=== PATIENT | female | born 1990 | race Two or more races ===

== ENCOUNTER 2022-04-10 14:05 | Emergency (ER) | payer OTHER ==
[2022-04-10 14:38] VITALS: TEMP 98.6; BMI 23.2
[2022-04-10] MEDS ORDERED: SODIUM CHLORIDE 0.9% 500 ML INFUS.BAG IV ONE (16:10)
[2022-04-10 17:04] LABS: BASO % 0.3 % (0-2.0); EOS % 0.5 % (0-4.5); HEMATOCRIT 36.9 % (32.4-45.2); HEMOGLOBIN 12.2 GM/dL (10.7-15.3); LYMPH % 12.5 % (8-40); MCH 28.1 pg (25.7-33.7); MCHC 33.2 g/dl (32.0-36.0); MEAN CELL VOLUME 84.5 fl (80-96); MONO % 4.8 % (3.8-10.2); NEUT % 81.9 % (42.8-82.8); PLATELET COUNT 413 10^3/uL (134-434); RBC 4.37 M/mm3 (3.60-5.2); RDW 16.8 % (11.6-15.6)
[2022-04-10 17:19] LABS: CALCIUM 9.5 mg/dL (8.5-10.1)
[2022-04-10 17:20] LABS: ALBUMIN 3.1 g/dl (3.4-5.0); BLOOD UREA NITROGEN 13.7 mg/dL (7-18); MAGNESIUM 2.1 mg/dL (1.8-2.4)
[2022-04-10 17:23] LABS: CREATININE 0.6 mg/dL (0.55-1.3)
[2022-04-10 17:25] LABS: BILIRUBIN,TOTAL 0.5 mg/dL (0.2-1); TOT PROT 7.4 g/dl (6.4-8.2)
[2022-04-10 20:52] VITALS: BP 110/66; PULSE 70
== END 2022-04-10 20:54 | disposition home or self-care (01) ==
LOC: JER 14:05
DX: R00.0 Tachycardia, unspecified (principal)
CPT/HCPCS: 36415; 80053; 83735; 84443; 84484; 85025; 93005; 93010; 99284-25

== ENCOUNTER 2023-01-20 08:19 | Emergency (ER) | payer OTHER ==
[2023-01-20 08:34] VITALS: RESP 18; TEMP 98.4; BMI 19.3
[2023-01-20] MEDS ORDERED: SODIUM CHLORIDE 0.9% 500 ML INFUS.BAG IV ONE (08:54)
[2023-01-20] MEDS ORDERED: METOCLOPRAMIDE HCL INJECTION 10 MG/2 ML VIAL IVPB ONE (08:54)
[2023-01-20] MEDS ORDERED: ACETAMINOPHEN 500 MG TABLET (FP) PO ONE (08:54)
[2023-01-20] MEDS ORDERED: METOCLOPRAMIDE HCL INJECTION 10 MG/2 ML VIAL ONE (09:31)
[2023-01-20] MEDS ORDERED: ACETAMINOPHEN 500 MG TABLET (FP) ONE (09:47)
[2023-01-20 09:48] LABS: BASO % 0.3 % (0-2.0); HEMOGLOBIN 12.6 GM/dL (10.7-15.3); LYMPH % 27.5 % (8-40); MCH 27.7 pg (25.7-33.7); MCHC 34.1 g/dl (32.0-36.0); MEAN CELL VOLUME 81.2 fl (80-96); MEAN PLT VOLUME 9.1 fl (7.5-11.1); MONO % 6.4 % (3.8-10.2); NEUT % 63.8 % (42.8-82.8); PLATELET COUNT 295 10^3/uL (134-434); RBC 4.56 M/mm3 (3.60-5.2); RDW 14.8 % (11.6-15.6); WHITE BLOOD COUNT 7.1 K/mm3 (4.0-10.0)
[2023-01-20 10:07] LABS: ACTIVATED PTT 33.8 SECONDS (25.2-36.5); INR 1.15 (0.83-1.09); PROTHROMBIN TIME (PATIENT) 13.3 SEC (9.7-13.0)
[2023-01-20 10:12] LABS: BLOOD UREA NITROGEN 12.5 mg/dL (7-18); CALCIUM 9.5 mg/dL (8.5-10.1)
[2023-01-20 10:15] LABS: CREATININE 0.7 mg/dL (0.55-1.3)
[2023-01-20 10:16] LABS: BILIRUBIN,TOTAL 0.8 mg/dL (0.2-1); TOT PROT 7.6 g/dl (6.4-8.2)
[2023-01-20 13:08] VITALS: BP 117/70; PULSE 74
[2023-01-20 14:02] LABS: CSF APPEARANCE CLEAR (CLEAR); CSF COLOR COLORLESS (COLORLESS); CSF WBC 1 mm3 (0-5)
== END 2023-01-20 14:48 | disposition home or self-care (01) ==
LOC: JER 08:19
PROC: 3E033GC Introduction of Other Therapeutic Substance into Peripheral Vein, Percutaneous Approach (ICD-10-PCS; principal; 2023-01-20)
DX: R51.9 Headache, unspecified (principal); M54.2 Cervicalgia
CPT/HCPCS: 36415; 70450-TC; 80053; 84703; 85025; 85610; 85730; 93005; 93010; 99285-25

== ENCOUNTER 2023-06-15 00:49 | Emergency (ER) | payer OTHER ==
[2023-06-15 01:02] VITALS: BP 155/100; PULSE 84; RESP 18; TEMP 98.2; BMI 18.3
[2023-06-15 02:12] LABS: BASO % 0.4 % (0-2.0); EOS % 0.9 % (0-4.5); HEMATOCRIT 35.4 % (32.4-45.2); LYMPH % 32.1 % (8-40); MCH 27.8 pg (25.7-33.7); MCHC 33.9 g/dl (32.0-36.0); MEAN CELL VOLUME 82.1 fl (80-96); MEAN PLT VOLUME 8.4 fl (7.5-11.1); MONO % 8.4 % (3.8-10.2); NEUT % 58.2 % (42.8-82.8); PLATELET COUNT 253 10^3/uL (134-434); RBC 4.32 M/mm3 (3.60-5.2); RDW 14.1 % (11.6-15.6); WHITE BLOOD COUNT 8.4 K/mm3 (4.0-10.0)
[2023-06-15 02:39] LABS: POTASSIUM 3.6 mmol/L (3.5-5.1)
[2023-06-15 02:41] LABS: CALCIUM 8.8 mg/dL (8.5-10.1)
[2023-06-15 02:42] LABS: ALBUMIN 3.7 g/dl (3.4-5.0); BLOOD UREA NITROGEN 16.5 mg/dL (7-18); MAGNESIUM 1.9 mg/dL (1.8-2.4)
[2023-06-15 02:45] LABS: CREATININE 0.7 mg/dL (0.55-1.3)
[2023-06-15 02:47] LABS: TOT PROT 7.2 g/dl (6.4-8.2)
== END 2023-06-15 03:15 | disposition home or self-care (01) ==
LOC: JER 00:49
DX: R00.2 Palpitations (principal)
CPT/HCPCS: 36415; 80053; 83735; 84439; 84443; 84703; 85025; 93005; 93010; 99284-25

== ENCOUNTER 2023-06-19 11:46 | Emergency (ER) | payer OTHER ==
[2023-06-19 11:58] VITALS: TEMP 98.2; BMI 18.3
[2023-06-19] MEDS ORDERED: SODIUM CHLORIDE 1,000 ML IV STA (12:32)
[2023-06-19] MEDS ORDERED: ALPRAZolam 0.25 MG TABLET PO ONE (12:58)
[2023-06-19] MEDS ORDERED: ALPRAZolam 0.25 MG TABLET ONE (13:24)
[2023-06-19 13:33] LABS: BASO % 0.4 % (0-2.0); EOS % 0.4 % (0-4.5); HEMATOCRIT 38.9 % (32.4-45.2); HEMOGLOBIN 13.1 GM/dL (10.7-15.3); LYMPH % 21.8 % (8-40); MCH 27.6 pg (25.7-33.7); MCHC 33.6 g/dl (32.0-36.0); MEAN CELL VOLUME 82.4 fl (80-96); MEAN PLT VOLUME 8.5 fl (7.5-11.1); MONO % 6.4 % (3.8-10.2); PLATELET COUNT 277 10^3/uL (134-434); RBC 4.72 M/mm3 (3.60-5.2); RDW 13.9 % (11.6-15.6); WHITE BLOOD COUNT 7.8 K/mm3 (4.0-10.0)
[2023-06-19 13:47] LABS: CHLORIDE 106 mmol/L (98-107); SODIUM 132 mmol/L (136-145)
[2023-06-19 13:48] LABS: CALCIUM 8.8 mg/dL (8.5-10.1)
[2023-06-19 13:49] LABS: BLOOD UREA NITROGEN 17.8 mg/dL (7-18); CO2 24 mmol/L (21-32); GLUCOSE,RANDOM 58 mg/dL (74-106); MAGNESIUM 2.3 mg/dL (1.8-2.4)
[2023-06-19 13:52] LABS: CREATININE 0.8 mg/dL (0.55-1.3)
[2023-06-19 13:54] LABS: BILIRUBIN,TOTAL 1.7 mg/dL (0.2-1); TOT PROT 8.3 g/dl (6.4-8.2)
[2023-06-19 13:55] LABS: ALK PHOS 124 U/L (45-117)
[2023-06-19 14:03] LABS: ANION GAP 1 MMOL/L (8-16); POTASSIUM > 10.0 mmol/L (3.5-5.1); SGOT/AST 85 U/L (15-37); SGPT/ALT 34 U/L (13-61)
[2023-06-19 14:04] VITALS: BP 110/55; PULSE 88; RESP 16
[2023-06-19 15:08] LABS: POTASSIUM 4.5 mmol/L (3.5-5.1)
[2023-06-19 15:10] LABS: BLOOD UREA NITROGEN 15.7 mg/dL (7-18); CALCIUM 8.5 mg/dL (8.5-10.1)
[2023-06-19 15:13] LABS: CREATININE 0.6 mg/dL (0.55-1.3)
== END 2023-06-19 15:41 | disposition home or self-care (01) ==
LOC: JER 11:46
PROC: 3E0F7GC Introduction of Other Therapeutic Substance into Respiratory Tract, Via Natural or Artificial Opening (ICD-10-PCS; principal; 2023-06-19)
DX: R00.2 Palpitations (principal); F41.9 Anxiety disorder, unspecified
CPT/HCPCS: 36415; 80048; 80053; 83735; 84439; 84443; 84484; 84703; 85025; 93005; 93010; 99284-25

== ENCOUNTER 2023-09-13 18:21 | Emergency (ER) | payer OTHER ==
[2023-09-13 18:31] VITALS: BP 145/86; RESP 16; TEMP 97.8; BMI 18.3
[2023-09-13 18:57] VITALS: PULSE 75
[2023-09-13 19:33] LABS: BASO % 0.5 % (0-2.0); EOS % 1.6 % (0-4.5); HEMATOCRIT 37.6 % (32.4-45.2); HEMOGLOBIN 12.5 GM/dL (10.7-15.3); LYMPH % 23.1 % (8-40); MCH 28.3 pg (25.7-33.7); MCHC 33.2 g/dl (32.0-36.0); MEAN CELL VOLUME 85.3 fl (80-96); MEAN PLT VOLUME 8.4 fl (7.5-11.1); MONO % 8.5 % (3.8-10.2); NEUT % 66.3 % (42.8-82.8); PLATELET COUNT 308 10^3/uL (134-434); WHITE BLOOD COUNT 10.5 K/mm3 (4.0-10.0)
[2023-09-13 19:55] LABS: POTASSIUM 4.6 mmol/L (3.5-5.1)
[2023-09-13 19:56] LABS: CALCIUM 8.8 mg/dL (8.5-10.1)
[2023-09-13 19:58] LABS: ALBUMIN 3.8 g/dl (3.4-5.0); BLOOD UREA NITROGEN 16.6 mg/dL (7-18); MAGNESIUM 2.3 mg/dL (1.8-2.4)
[2023-09-13 20:01] LABS: CREATININE 0.7 mg/dL (0.55-1.3)
[2023-09-13 20:02] LABS: BILIRUBIN,TOTAL 0.8 mg/dL (0.2-1); TOT PROT 7.4 g/dl (6.4-8.2)
== END 2023-09-13 20:33 | disposition home or self-care (01) ==
LOC: JER 18:21
DX: R00.2 Palpitations (principal); F41.9 Anxiety disorder, unspecified
CPT/HCPCS: 36415; 80053; 83735; 84443; 85025; 93005; 93010; 99284-25